=== PATIENT | male | born 1975 | race African-American/Black ===

== ENCOUNTER 2025-07-05 12:04 | Emergency (ER) | payer MEDICAID ==
[~2025-07-05] VITALS: Ht 188 cm; Wt 91.0 kg
[2025-07-05 12:06] VITALS: BP 108/62; PULSE 86; RESP 18; TEMP 98.3; O2SAT 97
[2025-07-05 14:02] LABS: BASOPHILS % 0.5 % (0.0-2.0); EOSINOPHILS % 0.7 % (0.0-5.0); HEMATOCRIT. 33.9 % (42.0-52.0); HEMOGLOBIN. 11.2 g/dL (14.0-18.0); LYMPHOCYTES % 27.1 % (20.0-50.0); MEAN PLATELET VOLUME 7.2 fl (7.4-10.4); MONOCYTES % 7.5 % (2.0-8.0); NEUTROPHILS % 64.2 % (40.0-76.0); PLATELET 203 x1000/uL (130-400); RED BLOOD CELL COUNT 3.57 mill/uL (4.7-6.1); RED CELL DISTRIBUTION WIDTH 16.5 % (11.6-14.6)
[2025-07-05] MEDS: ACETAMINOPHEN 500MG TABLET PO ONE (14:02)
[2025-07-05 14:08] LABS: CREATININE 0.9 mg/dL (0.6-1.3); UREA NITROGEN BLOOD 16 mg/dL (9-23)
[2025-07-05 14:27] LABS: ETHANOL BLOOD 415 mg/dL (<10)
[2025-07-05] MEDS: POTASSIUM CHLORIDE 20MEQ TABLET SR PO NR (15:20)
== END 2025-07-05 16:32 | disposition home or self-care (01) ==
LOC: ER 12:04
DX: G92.9 Unspecified toxic encephalopathy (principal); E87.6 Hypokalemia; Z88.0 Allergy status to penicillin
CPT/HCPCS: 36415; 80048; 80320; 85025; 99283; G0480